=== PATIENT | female | born 1965 | race Caucasian/White ===

== ENCOUNTER → 2017-02-25 | Outpatient (CLI) | payer OTHER ==
--- NOTE | 2017-02-25 14:04 | XR ---
EXAMINATION TYPE: XR cervical spine limited DATE OF EXAM: 02/25/2017 1:53 PM COMPARISON: NONE HISTORY: Pain TECHNIQUE: Four views are submitted. FINDINGS: The odontoid is intact. There are no compression deformities. The prevertebral soft tissue structur es are within normal limits. There is loss the normal cervical lordosis. Severe degenerative disc di sease C4-T1 with posterior spondylosis. Anterior hypertrophic changes are seen. IMPRESSION: 1. Multilevel severe degenerative disc disease. Reversal of the normal cervical lordosis. Correlate w ith MRI as clinically warranted. Likely is a degree of Canal stenosis at C5-C6 secondary to posterior spondylosis. Foraminal encroachment suspected.
== END ==
LOC: RADXRMAIN 13:18
PROVIDERS: ATTEND Family Medicine
DX: M50.30 Other cervical disc degeneration, unspecified cervical region (principal)
CPT/HCPCS: 72040

== ENCOUNTER → 2017-04-30 | Outpatient (CLI) | payer OTHER ==
--- NOTE | 2017-05-01 08:20 | MM ---
Reason for exam: screening (asymptomatic). Last mammogram was performed 13 years and 8 months ago. History: Patient is postmenopausal. Family history of breast cancer in paternal grandmother at age 75. Took hormonal contraceptives for 9 years beginning at age 20. Physical Findings: A clinical breast exam by your physician is recommended on an annual basis and results should be correlated with mammographic findings. MG Screening Mammo w CAD Bilateral CC and MLO view(s) were taken. Prior study comparison: December 05, 2015, right breast mammogram, performed at [facility]. May 23, 2015, mammogram, performed at [facility]. February 09, 2014, mammogram, performed at [facility]. The breast tissue is heterogeneously dense. This may lower the sensitivity of mammography. There is chronic nodularity in the left breast. No significant changes when compared with prior studies. ASSESSMENT: Benign, BI-RAD 2 RECOMMENDATION: Routine screening mammogram of both breasts in 1 year.
== END | disposition home or self-care (01) ==
LOC: RADMAMWWP 10:15
PROVIDERS: ATTEND Family Medicine
DX: Z12.31 Encounter for screening mammogram for malignant neoplasm of breast (principal)

== ENCOUNTER 2018-06-03 09:16 | Day surgery (SDC) | payer OTHER ==
[2018-06-01 17:25] VITALS: BMI 36.0
[~2018-06-03 09:16] MED LIST: LACTATED RINGERS 1,000 ML IV SCH
[2018-06-03 09:56] VITALS: TEMP 97.3
[2018-06-03] MEDS ORDERED: LIDOCAINE 1% 20 ML VIAL (10MG/ML) FOR IV START INTRADERMA ONE (09:59)
[2018-06-03 10:04] LABS: Glucose,Whole Blood 87 mg/dL (75-99)
[2018-06-03] MEDS ORDERED: MIDAZOLAM 2 MG/2 ML VIAL IVP ONE (10:16)
[2018-06-03] MEDS ORDERED: LIDOCAINE 1% INJ 10MG/ML (20 ML MDV) ONE (10:30)
[2018-06-03] MEDS ORDERED: PROPOFOL 10 MG/ML 20 ML VIAL IV ONE (10:30)
--- NOTE | 2018-06-03 10:54 | P.PCN ---
Date of Procedure: 06/03/18 Procedure(s) Performed: Procedure: Colonoscopy and polypectomy. Preoperative diagnosis: Screening for neoplasia. Postoperative diagnosis: Small cecal polyp snared but no large polyps or cancer. Preparation: HalfLytely prep. Sedation: Was provided by anesthesia. Brief clinical history: The patient is a 53-year-old female who is scheduled for this evaluation for screening for neoplasia. The patient has been troubled with constipation all her life having a bowel movement less often than once a week. She also had issues with hemorrhoids with intermittent rectal bleeding. She had those operated on years back. No family history of colon cancer. She has no other abdominal symptoms or anemia. This would be her first colonoscopy. Procedure: With the patient on her left lateral decubitus position and after informed consent and adequate sedation, the perianal area was inspected and it did not show any fissures or fistulas. There was skin redundancy and skin tags. There were no masses felt on digital rectal examination. The Olympus CFQ 160L video colonoscope was then inserted in the rectum in the usual fashion and advanced to the cecum. There was a small polyp in the cecum which was snared and retrieved by suction but there were no large polyps or cancer. The mucosa appeared healthy. No obvious diverticular disease or other pathology. I retroflexed the endoscope in the rectum before the endoscope was withdrawn. The patient tolerated the procedure well. Plan: The patient was reassured. Discussed dietary measures. She will follow- up with you as planned and I recommended repeat exam in 5 years.
[2018-06-03] MEDS ORDERED: ONDANSETRON 4 MG/2 ML VIAL IVP ONE (11:15)
[2018-06-03 11:35] VITALS: RESP 18
[2018-06-03 11:57] VITALS: BP 112/72; PULSE 60
== END 2018-06-03 12:26 | disposition home or self-care (01) ==
LOC: ORWHC2ENDO 09:16
DX: D12.0 Benign neoplasm of cecum (principal); K62.5 Hemorrhage of anus and rectum; L98.7 Excessive and redundant skin and subcutaneous tissue; L91.8 Other hypertrophic disorders of the skin; K59.00 Constipation, unspecified; Z88.5 Allergy status to narcotic agent; Z88.1 Allergy status to other antibiotic agents
CPT/HCPCS: 88305; 45385; J2250; J2405; J2001; J2704

== ENCOUNTER → 2018-11-30 | Outpatient (CLI) | payer OTHER ==
--- NOTE | 2018-11-30 14:32 | XR ---
EXAMINATION TYPE: XR chest 2V DATE OF EXAM: 11/30/2018 COMPARISON: NONE HISTORY: Persistent cough and severe shortness of breath. TECHNIQUE: Frontal and lateral views of the chest are obtained. FINDINGS: There is no focal air space opacity, pleural effusion, or pneumothorax seen. The cardiac silhouette size is within normal limits. Retrocardiac opacity consistent with moderate size hiatal he rnia is noted. The osseous structures are intact. IMPRESSION: No acute cardiopulmonary process.
[2018-12-01 11:43] LABS: Bordedella pertussis Not detected (Not detected); Bordetella holmesII Not detected (Not detected); Bordetella parapertussis Not detected (Not detected)
== END | disposition home or self-care (01) ==
LOC: RADXRMAIN 14:07
PROVIDERS: ATTEND Family Medicine
DX: R05 Cough (principal)
CPT/HCPCS: 71046; 87798

== ENCOUNTER 2019-02-09 12:57 | Observation (INO) | payer OTHER ==
[2019-02-09] MEDS ORDERED: MORPHINE SULFATE 2 MG/ML SYRINGE IM STA ×2 (13:59→15:29)
[2019-02-09] MEDS ORDERED: DIAZEPAM 5 MG TAB PO STA (13:59)
[2019-02-09] MEDS ORDERED: ONDANSETRON ODT 4 MG TAB PO STA ×2 (14:10→15:45)
--- NOTE | 2019-02-09 15:15 | XR ---
EXAMINATION TYPE: XR lumbar spine 2 or 3V DATE OF EXAM: 02/09/2019 COMPARISON: NONE HISTORY: 53-year-old female with low back pain TECHNIQUE: 3 views FINDINGS: Levoconvex curvature of the lumbar spine. 5 lumbar type vertebral bodies. Moderate disc space narrowi ng at L3-L4 and mild at additional levels with associated endplate spondylosis. Facet arthropathy low er lumbar spine. Vertebral body heights are preserved and alignment is maintained. IMPRESSION: 1. Levoconvex scoliosis. Mild multilevel degenerative disc disease with more moderate disc height los s at L3-L4. 2. Facet arthropathy lower lumbar spine. No vertebral compression collapse or malalignment.
--- NOTE | 2019-02-09 16:14 | ED ---
Back Pain HPI - General Chief Complaint: Back Pain/Injury Stated Complaint: Back Pain Time Seen by Provider: 02/09/19 13:42 Source: patient Limitations: no limitations - History of Present Illness Initial Comments: 53-year-old female presenting for right lower back pain. 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 She states that stretches across toward the left side. Patient states that any movement she has a muscle spasm. Patient states with walking or hurts. Patient denies any muscle weakness or loss sensation of lower extremity she denies any urinary retention she denies loss of bowel bladder control. Patient states she does struggle with constipation chronically and has not taken her medication because she is scared to hurt her back when running to the toilet. Pt denies falling, IVDU, hx of cancer, fever, chills night sweats, chest pain, dyspnea, or having back pain prior to today. Patient denies hematuria dysuria or urgency frequency or any other urinary symptoms. Upon arrival patient appears uncomfortable. Remaining ROS (-). - Related Data Home Medications Medication Instructions Recorded Confirmed No Known Home Medications 06/01/18 02/09/19 Allergies Allergy/AdvReac Type Severity Reaction Status Date / Time erythromycin base Allergy trouble Verified 02/09/19 13:18 swelling,itching hydromorphone [From Dilaudid] Allergy N/V,headache,passed Verified 02/09/19 13:18 out Review of Systems ROS Statement: Those systems with pertinent positive or pertinent negative responses have been documented in the HPI. ROS Other: All systems not noted in ROS Statement are negative. Past Medical History Additional Past Medical History / Comment(s): constipation, hemorrhoids,rectal bleeding History of Any Multi-Drug Resistant Organisms: None Reported Past Surgical History: Hysterectomy, Orthopedic Surgery Additional Past Surgical History / Comment(s): right foot surg, hemorrhoidectomy Past Anesthesia/Blood Transfusion Reactions: Previous Problems w/ Anesthesia, Mo tion Sickness, Postoperative Nausea & Vomiting (PONV) Additional Past Anesthesia/Blood Transfusion Reaction / Comment(s): anxious w/surgery, slow to wake up Past Psychological History: No Psychological Hx Reported Smoking Status: Former smoker - Past Family History Mother Family Medical History: No Reported History General Exam - General Exam Comments Initial Comments: General: The patient is awake and alert, in no distress Eye: Pupils are equal, round and reactive to light, extra-ocular movements are intact. No nystagmus. There is normal conjunctiva bilaterally. No signs of icterus. Ears, nose, mouth and throat: There are moist mucous membranes and no oral lesions. Neck: The neck is supple, there is no tenderness or JVD. Cardiovascular: There is a regular rate and rhythm. No murmur, rub or gallop is appreciated. Respiratory: Lungs are clear to auscultation, respirations are non-labored, breath sounds are equal. No wheezes, stridor, rales, or rhonchi. Gastrointestinal: Soft, non-distended, non-tender abdomen without masses or organomegaly noted. There is no rebound or guarding present. No CVA tenderness. Bowel sounds are unremarkable. Musculoskeletal: There is right sided paravertebral tenderness to palpation. No midline tenderness to palpation. Normal ROM of the LE however this induces pain. Strength 5/5 of the LE equal b/l. Sensation intact of the LE equal b/l. DP pulses equal bilaterally 2+. Neurological: A&O x 3. CN II-XII intact, There are no obvious motor or sensory deficits. Coordination appears grossly intact. Speech is normal. Skin: Skin is warm and dry and no rashes or lesions are noted. Psychiatric: Cooperative, appropriate mood & affect, normal judgment. Limitations: no limitations Course Vital Signs 02/09/19 02/09/19 13:06 17:18 Temperature 97.8 F Pulse Rate 97 68 Respiratory 16 18 Rate Blood Pressure 125/89 129/87 O2 Sat by Pulse 96 97 Oximetry Medical Decision Making - Medical Decision Making 53-year-old female presented for low back pain. Patient bent over An object when she noticed sudden onset of pain. Patient states with movement she has a spasm in the right lower back. Patient has no midline tenderness on exam parave rtebral tenderness noted. No signs of cauda equina. Patient is neurovascularly intact. CT negative for osseous injury, there is evidence of bulging disks. No fractures or compression fractures. Patient provided muscle relaxant Valium as well as multiple doses of medication. Patient states her pain is uncontrolled and would like admission stating she does not feel safe at home. At this time gi fanny pt pain uncontrolled, difficulty ambulating secondary to muscle spasm that pt will be admitted for symptoms control. Pt has history of constipation there is stoool on lumbar xr. Will treat inpatient. Case was discussed with attending fire Dr. Roche who spoke with admitting for Dr. Fontenot. No further orders at this time. Disposition Clinical Impression: Low back strain, Intractable pain, Muscle spasm, Constipation Disposition: ADMITTED IP TO THIS [facility] Condition: Stable Is patient prescribed a controlled substance at d/c from ED?: No Time of Disposition: 17:04 Decision to Admit Reason: Admit from EC Decision Date: 02/09/19 Decision Time: 17:04
--- NOTE | 2019-02-09 16:54 | CT ---
EXAMINATION TYPE: CT lumbar spine wo con DATE OF EXAM: 02/09/2019 4:32 PM COMPARISON: None HISTORY: Low back pain x2 days. CT DLP: 963.9 mGycm Automated exposure control for dose reduction was used. Unenhanced CT of the lumbar spine was performed. Bone and soft tissue window settings are submitted as well as coronal and sagittal reconstructions. Multiple axial sections were obtained from the level of T12-S3 vertebra with no contrast. There is mi ld lumbar levoscoliosis. There is mild disc space narrowing at L2-3 L3-4. There is minor spurring of the endplates. There are posterior central disc bulges at L3-4 L4-5 and L5-S1. There is developmental ly large spinal canal and no spinal stenosis. There is no compression fracture. There is no lumbar pa raspinal mass. I see no focal bone destruction. The visualized sacroiliac joints appear intact. Poste rior elements are intact. There is no significant facet arthropathy. IMPRESSION: Minor degenerative disc changes and disc bulging. No fracture. Mild levoscoliosis.
[2019-02-09] MEDS ORDERED: NALOXONE 0.4 MG/ML 1 ML VIAL IV PRN (17:04)
[2019-02-09] MEDS ORDERED: ACETAMINOPHEN TAB 325 MG TAB PO PRN (17:04)
[2019-02-09] MEDS ORDERED: MAGNESIUM HYDROXIDE 2,400 MG/10 ML CUP PO PRN (17:04)
[2019-02-09] MEDS ORDERED: ONDANSETRON 4 MG/2 ML VIAL IVP PRN (17:04)
[2019-02-09] MEDS ORDERED: MORPHINE SULFATE 4 MG/ML SYRINGE IV PRN (17:04)
[2019-02-09] MEDS: KETOROLAC 30 MG/ML 1 ML VIAL IVP PRN (18:42)
[2019-02-09 19:19] VITALS: BMI 34.7
[2019-02-09] MEDS: SODIUM CHLORIDE 0.9% 1,000 ML IV SCH (19:43)
[2019-02-10] MEDS ORDERED: BISACODYL 10 MG SUPP RECTAL STA (12:29)
[2019-02-10] MEDS ORDERED: CYCLOBENZAPRINE 10 MG TAB PO PRN (12:52)
[2019-02-10] MEDS: KETOROLAC 30 MG/ML 1 ML VIAL IVP PRN (13:03)
[2019-02-10] MEDS: SODIUM CHLORIDE 0.9% 1,000 ML IV SCH (14:45)
[2019-02-10] MEDS: LIDOCAINE 5% PATCH TOPICAL SCH (14:46)
[2019-02-10] MEDS ORDERED: BISACODYL 5 MG TABLET.DR PO PRN (16:44)
--- NOTE | 2019-02-10 16:44 | P.HPIM ---
History of Present Illness Chief Complaint: Back pain 53-year-old female comes in with above-mentioned complaint. 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 She said that she was not getting relief. Walking was hurting her she thus was brought in by her boyfriend to the ER for further urology management. The patient the time examination was denying any muscle weakness she was able to lift her legs but was having pain in her back when she was lifting her legs. She denies any loss of bowel or bladder control denies any numbness to her legs. Patient does not complain of any chest pain, no racing heart, no cough no shortness of breath, no bowel pain, nausea and vomiting, or diarrhea constipation, no tingling numbness of any extremities, no itch no rash ER course-patient's vitals were stable. CT of the lumbar spine shows minor degenerative changes and is bulging at the L2 3 and 4. No evidence of any compression fractures no spinal stenosis appreciated. Patient was given pain medications and admitted to the hospitalist service a further admission and management Review of Systems All systems: negative Past Medical History Additional Past Medical History / Comment(s): constipation, hemorrhoids,rectal bleeding History of Any Multi-Drug Resistant Organisms: None Reported Past Surgical History: Hysterectomy, Orthopedic Surgery Additional Past Surgical History / Comment(s): right foot surg, hemorrhoidectomy Past Anesthesia/Blood Transfusion Reactions: Previous Problems w/ Anesthesia, Motion Sickness, Postoperative Nausea & Vomiting (PONV) Additional Past Anesthesia/Blood Transfusion Reaction / Comment(s): anxious w/surgery, slow to wake up Past Psychological History: No Psychological Hx Reported Smoking Status: Former smoker - Past Family History Mother Family Medical History: No Reported History Medications and Allergies Home Medications Medication Instructions Recorded Confirmed Type No Known Home Medications 06/01/18 02/09/19 History Allergies Allergy/AdvReac Type Severity Reaction Status Date / Time erythromycin base Allergy trouble Verified 02/09/19 13:18 swelling,itching hydromorphone [From Dilaudid] Allergy N/V,headache,passed Verified 02/09/19 13:18 out Physical Exam Vitals: Vital Signs Temp Pulse Pulse Resp BP BP Pulse Ox 02/10/19 11:34 97.5 F L 67 18 108/68 94 L 02/10/19 05:42 97.7 F 101 H 16 109/75 93 L 02/09/19 20:44 97.1 F L 68 16 122/76 95 02/09/19 17:18 68 18 129/87 97 Intake and Output 02/10/19 02/10/19 02/10/19 06:59 14:59 22:59 Intake Total 590 Balance 590 Intake: Oral 590 Other: Voiding Method Toilet # Voids 2 4 On exam, alert and oriented x3. HEENT: Conjunctivae normal. eyes normal. NECK: No JVD. No thyroid enlargement. No LNs CARDIOVASCULAR: S1, S2 muffled. No murmur RESPIRATION: Breath sounds diminished in the bases. No rhonchi or crackles. No bronchial breathing. ABDOMEN: Soft, nontender . No guarding. no masses palpable. No ascites, No hepatosplenomegaly.Bowel sounds heard. LEGS: No edema. no swelling NERVOUS SYSTEM: Cranial N 2-12 grossly normal. Moves all 4 limbs. No focal deficits. No sensory deficit. No signs of cerebellar dysfucntion. Muscular skeletal : Patient is having paraspinal tenderness in the lumbar area. No spinal tenderness appreciated. Patient is having pain while raising her bilateral lower extremities Skin: no ulcer no rash Joints: No active swelling. No inflammation. Lymphatic system. No LN neck axilla or groin. Thrombosis Risk Factor Assmnt - Choose All That Apply Any of the Below Risk Factors Present?: Yes Each Factor Represents 1 point: Age 41-60 years, Obesity (BMI >25) Other Risk Factors: No Other congenital or acquired thrombophilia - If yes, enter type in comment: No Thrombosis Risk Factor Assessment Total Risk Factor Score: 2 Thrombosis Risk Factor Assessment Level: Low Risk Assessment and Plan Assessment: - Back pain - Paraspinal tenderness, no spinal tenderness - History of hemorrhoids - History of constipation Plan - We'll admit the patient MedSurg with telemetry under observation - We will control her pain with Toradol and morphine - We'll order for Flexeril and Ultram patch - PTOT has been consulted - Patient will be given Dulcolax for constipation - DVT and GI prophylaxis - We'll order for lab work in the morning - P patient is full code Time with Patient: Greater than 30
[2019-02-11] MEDS: LIDOCAINE 5% PATCH TOPICAL SCH (08:39)
[2019-02-11 08:40] LABS: HCT 40.9 % (34.0-46.0); HGB 12.9 gm/dL (11.4-16.0); MCH 27.6 pg (25.0-35.0); MCHC 31.5 g/dL (31.0-37.0); MCV 87.5 fL (80.0-100.0); Mean Platelet Volume 7.9; Platelet Count 263 k/uL (150-450); RBC 4.67 m/uL (3.80-5.40); WBC 8.2 k/uL (3.8-10.6)
[2019-02-11] MEDS: SODIUM CHLORIDE 0.9% 1,000 ML IV SCH (08:40)
[2019-02-11 08:56] LABS: Anion Gap 8 mmol/L; Blood Urea Nitrogen 17 mg/dL (7-17); Calcium 8.8 mg/dL (8.4-10.2); Carbon Dioxide 22 mmol/L (22-30); Chloride 109 mmol/L (98-107); Glucose 77 mg/dL (74-99); Potassium 4.7 mmol/L (3.5-5.1); Sodium 139 mmol/L (137-145)
[2019-02-11] MEDS: KETOROLAC 30 MG/ML 1 ML VIAL IVP PRN (14:14)
--- NOTE | 2019-02-11 14:38 | P.DS ---
Providers Date of admission: 02/09/19 17:17 Expected date of discharge: 02/11/19 Attending physician: Maria A Fontenot Primary care physician: Beth Villatoro [facility] Course: Discharge diagnosis Back pain - Paraspinal tenderness, no spinal tenderness - History of hemorrhoids - History of constipation Hospital course 53-year-old female comes in with above-mentioned complaint. 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 She said that she was not getting relief. Walking was hurting her she thus was brought in by her boyfriend to the ER for further urology management. The patient the time examination was denying any muscle weakness she was able to lift her legs but was having pain in her back when she was lifting her legs. She denies any loss of bowel or bladder control denies any numbness to her legs. Patient does not complain of any chest pain, no racing heart, no cough no shortness of breath, no bowel pain, nausea and vomiting, or diarrhea constipation, no tingling numbness of any extremities, no itch no rash On exam, alert and oriented x3. She said that she was doing much better than yesterday but she still having some spasms and pain. She is able to move up and walk though. Physical exam HEENT: Conjunctivae normal. eyes normal. NECK: No JVD. No thyroid enlargement. No LNs CARDIOVASCULAR: S1, S2 muffled. No murmur RESPIRATION: Breath sounds diminished in the bases. No rhonchi or crackles. No bronchial breathing. ABDOMEN: Soft, nontender . No guarding. no masses palpable. No ascites, No hepatosplenomegaly.Bowel sounds heard. LEGS: No edema. no swelling NERVOUS SYSTEM: Cranial N 2-12 grossly normal. Moves all 4 limbs. No focal deficits. No sensory deficit. No signs of cerebellar dysfucntion. Muscular skeletal : Patient is having paraspinal tenderness in the lumbar area. No spinal tenderness appreciated. Patient is having pain while raising her bilateral lower extremities Skin: no ulcer no rash Joints: No active swelling. No inflammation. Lymphatic system. No LN neck axilla or groin. The patient w will have an x-ray of the abdomen to make sure she is not having obstruction. She will be discharged if the x-ray does not show any obstruction. Physical therapy has been requested to give recommendations regarding home physical therapy. Before discharge the patient will be given referral for home PT. The patient will have an appointment made next week to follow without PCP to get physical therapy. She will also be given a work note Patient Condition at Discharge: Stable Plan - Discharge Summary Discharge Rx Participant: Yes New Discharge Prescriptions: New Bisacodyl [Dulcolax] 10 mg PO DAILY PRN #30 tablet. PRN Reason: Constipation Cyclobenzaprine [Flexeril] 10 mg PO TID PRN #30 tab PRN Reason: Muscle Spasm Lidocaine 5% Patch [Lidoderm 5% Patch] 1 patch TOPICAL DAILY #10 patch Naproxen 500 mg PO BID PRN #45 tablet PRN Reason: Pain HYDROcodone/APAP 5-325MG [[place] 5-325] 1 tab PO Q6HR PRN 3 Days #12 tab PRN Reason: Pain Omeprazole 20 mg PO DAILY #30 cap Acetaminophen Tab [Tylenol] 650 mg PO Q6HR PRN #30 tab PRN Reason: Mild Pain Or Fever > 100.5 Discharge Medication List Acetaminophen Tab [Tylenol] 650 mg PO Q6HR PRN #30 tab 02/11/19 [Rx] Bisacodyl [Dulcolax] 10 mg PO DAILY PRN #30 tablet. 02/11/19 [Rx] Cyclobenzaprine [Flexeril] 10 mg PO TID PRN #30 tab 02/11/19 [Rx] HYDROcodone/APAP 5-325MG [[place] 5-325] 1 tab PO Q6HR PRN 3 Days #12 tab 02/11/19 [Rx] Lidocaine 5% Patch [Lidoderm 5% Patch] 1 patch TOPICAL DAILY #10 patch 02/11/19 [Rx] Naproxen 500 mg PO BID PRN #45 tablet 02/11/19 [Rx] Omeprazole 20 mg PO DAILY #30 cap 02/11/19 [Rx] Follow up Appointment(s)/Referral(s): Beth Villatoro MD [Primary Care Provider] - 02/15/19 1:00 pm [facility], [NON-STAFF] - 1 Week Discharge Disposition: HOME WITH HOME HEALTH SERVICES
--- NOTE | 2019-02-11 17:10 | XR ---
EXAMINATION TYPE: XR abdomen 1V DATE OF EXAM: 02/11/2019 COMPARISON: NONE HISTORY: Abdominal pain TECHNIQUE: 2 views FINDINGS: Supine views were obtained and show no sign of intestinal obstruction or pneumoperitoneum. Fecal pattern is normal. There are no pathologic calcifications over the kidneys. There is slight lum bar levoscoliosis. Sacroiliac joints are intact. IMPRESSION: Nonacute abdomen. Slight lumbar levoscoliosis. No significant constipation.
[2019-02-11 21:25] VITALS: BP 112/75; PULSE 89; RESP 18; TEMP 97.5
== END 2019-02-11 21:56 | disposition home health service (06) ==
LOC: EC 12:57 → 3NMEDONC 17:17
PROVIDERS: ADMIT Hospitalist; ATTEND Hospitalist
DX: S39.012A Strain of muscle, fascia and tendon of lower back, initial encounter (principal); K59.09 Other constipation; K64.9 Unspecified hemorrhoids; M62.838 Other muscle spasm; E66.9 Obesity, unspecified; Z68.39 Body mass index [BMI] 39.0-39.9, adult; X50.9XXA Other and unspecified overexertion or strenuous movements or postures, initial encounter; Z88.5 Allergy status to narcotic agent; Z88.1 Allergy status to other antibiotic agents; Z87.891 Personal history of nicotine dependence
CPT/HCPCS: 96376 ×2; 96375; 96372; 96374; 99285; 97162; 97535; 97166; 80048; 85027; 72100; 74018; 72131; G0378 ×3; J2270 ×2; J2405; J1885 ×3

== ENCOUNTER → 2019-08-08 | Outpatient (CLI) | payer OTHER ==
--- NOTE | 2019-08-10 14:19 | MM ---
Reason for exam: screening (asymptomatic). Last mammogram was performed 2 years and 3 months ago. History: Patient is postmenopausal. Family history of breast cancer in paternal grandmother at age 75. Took hormonal contraceptives for 9 years beginning at age 20. Physical Findings: A clinical breast exam by your physician is recommended on an annual basis and results should be correlated with mammographic findings. MG Screening Mammo w CAD Bilateral CC and MLO view(s) were taken. Prior study comparison: April 30, 2017, bilateral MG screening mammo w CAD. December 05, 2015, right breast mammogram, performed at [facility]. The breast tissue is heterogeneously dense. This may lower the sensitivity of mammography. Benign appearing bilateral calcifications. No suspicious abnormality. No significant changes when compared with prior studies. ASSESSMENT: Benign, BI-RAD 2 RECOMMENDATION: Routine screening mammogram of both breasts in 1 year.
== END | disposition home or self-care (01) ==
LOC: RADMAMWWP 16:30
PROVIDERS: ATTEND Family Medicine
DX: Z12.31 Encounter for screening mammogram for malignant neoplasm of breast (principal)
CPT/HCPCS: 77067

== ENCOUNTER → 2020-08-29 | Outpatient (CLI) | payer OTHER ==
--- NOTE | 2020-08-29 14:03 | MM ---
Reason for exam: screening (asymptomatic). Last mammogram was performed 1 year and 1 month ago. History: Patient is postmenopausal. Family history of breast cancer in paternal grandmother at age 75. Took hormonal contraceptives for 9 years beginning at age 20. Physical Findings: A clinical breast exam by your physician is recommended on an annual basis and results should be correlated with mammographic findings. MG Screening Mammo w CAD Bilateral CC and MLO view(s) were taken. Prior study comparison: August 08, 2019, bilateral MG screening mammo w CAD. April 30, 2017, bilateral MG screening mammo w CAD. The breast tissue is heterogeneously dense. This may lower the sensitivity of mammography. There are benign appearing round calcifications bilaterally. There is no discrete abnormality. ASSESSMENT: Benign, BI-RAD 2 RECOMMENDATION: Routine screening mammogram of both breasts in 1 year.
== END | disposition home or self-care (01) ==
LOC: RADMAMWWP 10:03
PROVIDERS: ATTEND Family Medicine
DX: Z12.31 Encounter for screening mammogram for malignant neoplasm of breast (principal)
CPT/HCPCS: 77067

== ENCOUNTER → 2020-09-04 | Outpatient (CLI) | payer OTHER ==
[2020-09-04 14:56] LABS: Basophils % (A) 1 %; Eosinophils # (A) 0.1 k/uL (0-0.7); Eosinophils % (A) 1 %; HCT 45.3 % (34.0-46.0); HGB 14.3 gm/dL (11.4-16.0); Lymphocytes # (A) 1.4 k/uL (1.0-4.8); Lymphocytes % (A) 24 %; MCH 26.8 pg (25.0-35.0); MCHC 31.6 g/dL (31.0-37.0); MCV 84.8 fL (80.0-100.0); Mean Platelet Volume 8.2; Monocytes # (A) 0.3 k/uL (0-1.0); Monocytes % (A) 5 %; Neutrophils # (A) 3.9 k/uL (1.3-7.7); Neutrophils % (A) 68 %; Platelet Count 249 k/uL (150-450); RBC 5.34 m/uL (3.80-5.40); WBC 5.7 k/uL (3.8-10.6)
[2020-09-04 19:39] LABS: Albumin 4.4 g/dL (3.80-4.90); Albumin/Globulin Ratio 2.1 (1.60-3.17); Anion Gap 9.6 mmol/L (4.00-12.00); BUN/Creat Ratio 16.67 Ratio (12.00-20.00); Calcium 9.6 mg/dL (8.7-10.3); Carbon Dioxide 25.4 mmol/L (21.6-31.8); Chol/HDL Ratio 3.38; Globulin 2.1 g/dL (1.6-3.3); LDL Cholesterol,Calculated 152.6 mg/dL (0.0-131.0); Non-African American GFR(CKD) 72.5 (60.0-200.0); Potassium 4.6 mmol/L (3.5-5.5); Total Bilirubin 0.6 mg/dL (0.3-1.2); Total Protein 6.5 g/dL (6.2-8.2); VLDL Calculation 33.4 mg/dL (5.00-40.00)
== END | disposition home or self-care (01) ==
LOC: LABWHC1 13:30
PROVIDERS: ATTEND Family Medicine
DX: Z20.828 Contact with and (suspected) exposure to other viral communicable diseases (principal)
CPT/HCPCS: 36415; 80053; 80061; 84443; 85025; 86803

== ENCOUNTER → 2021-10-16 | Outpatient (CLI) | payer OTHER ==
--- NOTE | 2021-10-17 14:59 | MM ---
Reason for exam: screening (asymptomatic). Last mammogram was performed 1 year and 2 months ago. History: Patient is postmenopausal. Family history of breast cancer in paternal grandmother at age 75. Took hormonal contraceptives for 9 years beginning at age 20. Physical Findings: A clinical breast exam by your physician is recommended on an annual basis and results should be correlated with mammographic findings. MG 3D Screening Mammo W/Cad Bilateral CC and MLO view(s) were taken. Prior study comparison: August 29, 2020, bilateral MG screening mammo w CAD. August 08, 2019, bilateral MG screening mammo w CAD. The breast tissue is heterogeneously dense. This may lower the sensitivity of mammography. There are benign appearing round calcifications bilaterally. Asymmetric breast tissue left posterior, stable. There is no discrete abnormality. ASSESSMENT: Benign, BI-RAD 2 RECOMMENDATION: Routine screening mammogram of both breasts in 1 year.
== END | disposition home or self-care (01) ==
LOC: RADMAMWWP 16:21
PROVIDERS: ATTEND Family Medicine
DX: Z12.31 Encounter for screening mammogram for malignant neoplasm of breast (principal); Z78.0 Asymptomatic menopausal state; Z80.3 Family history of malignant neoplasm of breast
CPT/HCPCS: 77063; 77067

== ENCOUNTER 2023-01-13 16:41 | Emergency (ER) | payer OTHER ==
[2023-01-13 16:54] VITALS: BP 132/89; PULSE 90; RESP 20; TEMP 98
[2023-01-13] MEDS ORDERED: HYDROcodone/APAP 5-325MG 1 EACH TAB PO STA (17:18)
[2023-01-13] MEDS ORDERED: KETOROLAC 15 MG/ML 1 ML VIAL IM STA (17:19)
--- NOTE | 2023-01-13 18:00 | XR ---
EXAMINATION TYPE: XR cervical spine comp DATE OF EXAM: 01/13/2023 5:28 PM INDICATION: Patient age:Female; 57 years old; Reason for study: Pain; COMPARISON: Spine 02/25/2017 TECHNIQUE: The cervical spine was imaged in frontal, lateral, and odontoid. FINDINGS: The osseous structures show normal alignment without evidence of an acute fracture. There are osteoph ytes noted throughout the cervical spine on the anterior and lateral aspects of the vertebral bodies. The intervertebral disk spaces are narrowed at multiple levels Pedicles are intact. Soft tissues ar e within normal limits. The odontoid appears intact. IMPRESSION: 1. No fracture or dislocation. 2. Mild degenerative disc disease changes of the cervical spine.
--- NOTE | 2023-01-13 18:02 | XR ---
EXAMINATION TYPE: XR shoulder complete LT DATE OF EXAM: 01/13/2023 5:28 PM INDICATION: Patient age:Female; 57 years old; Reason for study: Pain; COMPARISON: None TECHNIQUE: The left shoulder was examined in AP, internally rotated and scapular Y projections. FINDINGS: No evidence of acute osseous pathology, joint dislocation, or soft tissue swelling. The remaining por tions of the visualized chest are unremarkable. IMPRESSION: No acute osseous pathology.
--- NOTE | 2023-01-13 18:18 | ED ---
Extremity Problem HPI - General Chief complaint: Extremity Problem,Nontraumatic Stated complaint: numbness in L arm Time Seen by Provider: 01/13/23 16:58 Source: patient, RN notes reviewed Mode of arrival: ambulatory Limitations: no limitations - History of Present Illness Initial comments: This is a 57-year-old female who presents to the emergency department for left arm pain and numbness. Reports pain and numbness in the left arm going on for over a year. Since she is taking Motrin and Tylenol with no relief in symptoms. She was originally told that it may be related to a pinched nerve in the neck, however she did not have any kind of workup done. She is at the point where she is unable to sleep due to the pain. States that it feels like a heaviness and describes the sensation as being similar to when her foot is asleep. She has not yet seen any specialists regarding this problem. Denies any fevers, chills, sore throat, cough, dyspnea, chest pain, palpitations, abdominal pain, nausea, vomiting, diarrhea, back pain, or headaches. MD Complaint: extremity pain - Related Data Previous Rx's Medication Instructions Recorded Acetaminophen Tab [Tylenol] 650 mg PO Q6HR PRN #30 tab 02/11/19 Cyclobenzaprine [Flexeril] 10 mg PO TID PRN #30 tab 02/11/19 HYDROcodone/APAP 5-325MG [Eldorado 1 tab PO Q6HR PRN 3 Days #12 tab 02/11/19 5-325] Lidocaine 5% Patch [Lidoderm 5% 1 patch TOPICAL DAILY #10 patch 02/11/19 Patch] Naproxen 500 mg PO BID PRN #45 tablet 02/11/19 Omeprazole 20 mg PO DAILY #30 cap 02/11/19 bisacodyL [Dulcolax] 10 mg PO DAILY PRN #30 tablet. 02/11/19 HYDROcodone/APAP 5-325MG [E[place]orado 1 tab PO Q6HR PRN 3 Days #12 tab 01/13/23 5-325] predniSONE 50 mg PO DAILY 5 Days #5 tab 01/13/23 Allergies Allergy/AdvReac Type Severity Reaction Status Date / Time erythromycin base Allergy trouble Verified 01/13/23 16:54 swelling,itching hydromorphone [From Dilaudid] Allergy N/V,headache,passed Verified 01/13/23 16:54 out Review of Systems ROS Statement: Those systems with pertinent positive or pertinent negative responses have been documented in the HPI. ROS Other: All systems not noted in ROS Statement are negative. Past Medical History Additional Past Medical History / Comment(s): constipation, hemorrhoids,rectal bleeding History of Any Multi-Drug Resistant Organisms: None Reported Past Surgical History: Hysterectomy, Orthopedic Surgery Additional Past Surgical History / Comment(s): right foot surg, hemorrhoidectomy Past Anesthesia/Blood Transfusion Reactions: Previous Problems w/ Anesthesia, Motion Sickness, Postoperative Nausea & Vomiting (PONV) Additional Past Anesthesia/Blood Transfusion Reaction / Comment(s): anxious w/surgery, slow to wake up Past Psychological History: No Psychological Hx Reported Smoking Status: Never smoker Past Alcohol Use History: Daily Past Drug Use History: None Reported - Past Family History Mother Family Medical History: No Reported History General Exam Limitations: no limitations General appearance: alert, in no apparent distress Head exam: Present: atraumatic, normocephalic, normal inspection Neck exam: Present: normal inspection, tenderness (Left lateral aspect of the cervical spine). Absent: meningismus, lymphadenopathy Respiratory exam: Present: normal lung sounds bilaterally. Absent: respiratory distress, wheezes, rales, rhonchi, stridor Cardiovascular Exam: Present: regular rate, normal rhythm, normal heart sounds. Absent: systolic murmur, diastolic murmur, rubs, gallop, clicks Extremities exam: Present: other (Tenderness to palpation over the trapezius and cervical spine. Pain induced with active and passive range of motion. 2+ radial pulses and capillary refill less than 1 second. No erythema, swelling, or deformities.) Neurological exam: Present: alert, oriented X3, CN II-XII intact Psychiatric exam: Present: normal affect, normal mood Skin exam: Present: warm, dry, intact, normal color. Absent: rash Course Vital Signs 01/13/23 16:51 Temperature 98.0 F Pulse Rate 90 Respiratory 20 Rate Blood Pressure 132/89 O2 Sat by Pulse 99 Oximetry Medical Decision Making - Medical Decision Making This is a 57-year-old female who presents to the emergency department for left arm pain. Was pt. sent in by a medical professional or institution? @ -No Did you speak to anyone other than the patient for history? @ -No Did you review nursing and triage notes? @ -Yes, and I agree, it is accurate with regards to the patient's symptoms. Were old charts reviewed? @ -No Differential Diagnosis? @ -Arm Pain/Numbness: Fracture, dislocation, NC, DVT, arterial occlusion, cervical radiculopathy, infection, this is not meant to be an all-inclusive list. X-rays interpreted by me (1pt min.)? @ -X-ray of the cervical spine and left shoulder obtained. My interpretation reveals degenerative changes in the cervical spine and no evidence of any acute fractures in the cervical spine or the left shoulder. U/S interpreted by me (1pt. min.)? @ -Duplex ultrasound of the left upper extremity obtained. My interpretation identifies no evidence of a DVT. What testing was considered but not performed? (CT, X-rays, U/S, labs)? Why? @ -None What meds were considered but not given? Why? @ -None Did you discuss the management of the patient with other professionals? @ -No Did you reconcile home meds? @ -No Was smoking cessation discussed for >3mins.? @ -No Was critical care preformed (if so, how long)? @ -No Were there social determinants of health that impacted care today? How? (Homelessness, low income, unemployed, alcoholism, drug addiction, transportation, low edu. Level, literacy, decrease access to med. care, intermediate, rehab)? @ -No Was there de-escalation of care discussed even if they declined? (Discuss DNR or withdrawal of care, Hospice)? @ -No What co-morbidities impacted this encounter? (DM, HTN, Smoking, COPD, CAD, Cancer, CVA, Hep., AIDS, mental health diagnosis, sleep apnea, morbid obesity)? @ -None Was patient admitted / discharged? @ -Discharged. The radiologist notes multiple osteophytes on the cervical spine x-ray, that with associated left-sided cervical spine tenderness makes her symptoms most likely to be a cervical radiculopathy. Duplex ultrasound of the left upper extremity obtained as well, revealing no evidence of a DVT or other acute findings. I did offer her Eldorado and Toradol in the emergency department, however the patient declined. Prescription for Eldorado and 5 day course of prednisone provided with dosing instructions reviewed. She is instructed to avoid taking over the counter antiinflammatories when taking the Prednisone and to only take it with Tylenol. Also advised she avoid driving or operating machinery when taking the Eldorado. Information for neurology follow-up provided, instructed her to contact them for a follow-up appointment regarding the ongoing symptoms. Undiagnosed new problem with uncertain prognosis? @ -None Drug Therapy requiring intensive monitoring for toxicity (Heparin, Nitro, Insulin, Cardizem)? @ -None Were any procedures done? @ -None Diagnosis/symptom? @ -Cervical radiculopathy, Cervical osteophyte Acute, or Chronic, or Acute on Chronic? @ -Chronic Uncomplicated (without systemic symptoms) or Complicated (systemic symptoms)? @ -Uncomplicated Side effects of treatment? @ -None Exacerbation, Progression, or Severe Exacerbation] @ -Progression Poses a threat to life or bodily function? @ -No Return precautions reviewed in depth, the patient is instructed to return to the emergency department with any new, worsening, or concerning symptoms. Patient verbalized understanding. This case was discussed in detail with the attending ED physician, Dr. Hanson. Presentation, findings, and treatment plan discussed in detail as well. - Radiology Data Radiology results: report reviewed, image reviewed Disposition Clinical Impression: Cervical radiculopathy, Cervical osteophyte Disposition: HOME SELF-CARE Instructions (If sedation given, give patient instructions): Cervical Radiculopathy (ED) Additional Instructions: Return to the emergency department with any new, worsening, or concerning symptoms. Take the prednisone daily for 5 days. Do not take any other vfal-[id number]-tqijybi anti-inflammatories such as ibuprofen when taking this. You may take this with Tylenol. Take the Eldorado sparingly when your pain is the most severe and be aware that it may be sedating and you should avoid driving or operating machinery when taking this. Follow up with neurology as listed below for reevaluation of symptoms and discussion of alternative treatment options. Follow up with your primary care provider in 1-2 days. Prescriptions: HYDROcodone/APAP 5-325MG [Eldorado 5-325] 1 tab PO Q6HR PRN 3 Days #12 tab PRN Reason: Pain predniSONE 50 mg PO DAILY 5 Days #5 tab Is patient prescribed a controlled substance at d/c from ED?: Yes When asked, does pt state using other controlled substances?: No If prescribed controlled substance>3 days was MAPS reviewed?: Prescribed <3 Days Referrals: Beth Villatoro MD [Primary Care Provider] - 1-2 days Ronnie More MD [Medical Doctor] - 1-2 days
--- NOTE | 2023-01-13 18:49 | US ---
EXAMINATION TYPE: US venous doppler duplex UE LT DATE OF EXAM: 01/13/2023 COMPARISON: NONE CLINICAL HISTORY: Left arm pain and numbness. left arm tingling x 1 day SIDE PERFORMED: Left Left Arm: Negative for DVT , Grayscale, color doppler, spectral doppler imaging performed of the deep veins of the upper extremities. There is normal flow, compressibility and vascular waveforms. IMPRESSION: No evidence for deep vein thrombus of the left upper extremity.
[2023-01-13] MEDS ORDERED: IBUPROFEN 600 MG STARTER PACK 4 TAB BTL PO STA (19:06)
[2023-01-13] MEDS ORDERED: ACET/COD 300 MG/30 MG STARTER PACK 6 TAB BTL PO STA (19:06)
== END 2023-01-13 19:26 | disposition home or self-care (01) ==
LOC: EC 16:41
DX: M54.12 Radiculopathy, cervical region (principal); Z88.8 Allergy status to other drugs, medicaments and biological substances
CPT/HCPCS: 72050; 99283

== ENCOUNTER → 2023-01-15 | Outpatient (CLI) | payer OTHER ==
--- NOTE | 2023-01-16 08:05 | MM ---
Reason for Exam: Screening (asymptomatic). Last mammogram was performed 1 year(s) and 3 month(s) ago. Patient History: Menarche at age 14. First Full-Term at age 30. Hysterectomy at age 43. Postmenopausal. Patient has history of breast feeding. Hormonal Contraceptives for 9 years from age 20 until age 28. Paternal grandmother had breast cancer, age 75. Risk Values: Sushma 5 year model risk: 1.4%. NCI Lifetime model risk: 8.9%. Prior Study Comparison: 08/08/2019 Bilateral Screening Mammogram, [facility]. 08/29/2020 Bilateral Screening Mammogram, [facility]. 10/16/2021 Bilateral Screening Mammogram, [facility]. Tissue Density: The breast tissue is heterogeneously dense. This may lower the sensitivity of mammography. Findings: Analyzed By CAD. There is no suspicious group of microcalcifications or new suspicious mass in either breast. Benign-appearing round calcifications within both breasts. Overall Assessment: Benign, BI-RAD 2 Management: Screening Mammogram of both breasts in 1 year. A clinical breast exam by your physician is recommended on an annual basis and results should be correlated with mammographic findings. Electronically signed and approved by: David Torres D.O.
== END | disposition home or self-care (01) ==
LOC: RADMAMWWP 16:32
PROVIDERS: ATTEND Family Medicine
DX: Z12.31 Encounter for screening mammogram for malignant neoplasm of breast (principal); Z78.0 Asymptomatic menopausal state; Z80.3 Family history of malignant neoplasm of breast
CPT/HCPCS: 77067

== ENCOUNTER → 2024-01-18 | Outpatient (CLI) | payer OTHER ==
--- NOTE | 2024-01-18 23:29 | MM ---
Reason for Exam: Screening (asymptomatic). Last screening mammogram was performed 12 month(s) ago. Patient History: Menarche at age 14. First Full-Term at age 30. Hysterectomy at age 43. Postmenopausal. Patient has history of breast feeding. Hormonal Contraceptives for 9 years from age 20 until age 28. Paternal grandmother had breast cancer, age 75. Risk Values: Sushma 5 year model risk: 1.4%. NCI Lifetime model risk: 8.7%. Prior Study Comparison: 08/29/2020 Bilateral Screening Mammogram, [facility]. 10/16/2021 Bilateral Screening Mammogram, [facility]. 01/15/2023 Bilateral MG screening mammo w CAD, [facility]. Tissue Density: The breasts are heterogeneously dense, which may obscure small masses. Findings: Analyzed By CAD. The pattern is symmetrical. No significant interval change No suspicious groups of microcalcifications, spiculated or lobular masses, architectural distortion or other secondary signs of malignancy are mammographically apparent. Overall Assessment: Benign, BI-RAD 2 Management: Screening Mammogram of both breasts in 1 year. A negative mammogram report should not preclude additional follow up of suspicious palpable abnormalities. Patient should continue monthly self breast exam. A clinical breast exam by your physician is recommended on an annual basis and results should be correlated with mammographic findings. Electronically signed and approved by: Chano Mclean D.O. Radiologis
== END | disposition home or self-care (01) ==
LOC: RADMAMWWP 16:38
PROVIDERS: ATTEND Family Medicine
DX: Z12.31 Encounter for screening mammogram for malignant neoplasm of breast (principal); Z80.3 Family history of malignant neoplasm of breast; Z78.0 Asymptomatic menopausal state
CPT/HCPCS: 77067

== ENCOUNTER → 2025-01-20 | Outpatient (CLI) | payer OTHER ==
--- NOTE | 2025-01-23 13:13 | MM ---
Reason for Exam: Screening (asymptomatic). Last screening mammogram was performed 12 month(s) ago. Patient History: Menarche at age 14. First Full-Term at age 30. Hysterectomy at age 43. Postmenopausal. Patient has history of breast feeding. Hormonal Contraceptives for 9 years from age 20 until age 28. Paternal grandmother had breast cancer, age 75. Risk Values: Sushma 5 year model risk: 1.5%. NCI Lifetime model risk: 8.5%. Prior Study Comparison: 10/16/2021 Bilateral Screening Mammogram, [facility]. 01/15/2023 Bilateral MG screening mammo w CAD, [facility]. 01/18/2024 Bilateral MG screening mammo w CAD, [facility]. Tissue Density: The breasts are heterogeneously dense, which may obscure small masses. Findings: Analyzed By CAD. There is no suspicious group of microcalcifications or new suspicious mass in either breast. Overall Assessment: Benign, BI-RAD 2 Management: Screening Mammogram of both breasts in 1 year. . Patient should continue monthly self-breast exams. A clinical breast exam by your physician is recommended on an annual basis. This exam should not preclude additional follow-up of suspicious palpable abnormalities. Note on Sushma scores and lifetime risk: 1. A Sushma score greater than 3% is considered moderate risk. If this is the case, consider specialist referral to assess eligibility for a risk reducing agent. 2. If overall lifetime risk for the development of breast cancer is 20% or higher, the patient may qualify for future screening with alternating mammogram and breast MRI. [facility], , 01/23/2025 12:51 PM. Electronically signed and approved by: Rad Burt M.D. Radiologis
== END | disposition home or self-care (01) ==
LOC: RADMAMWWP 15:37
PROVIDERS: ATTEND Family Medicine
DX: Z12.31 Encounter for screening mammogram for malignant neoplasm of breast (principal); R92.333 Mammographic heterogeneous density, bilateral breasts; Z78.0 Asymptomatic menopausal state; Z92.0 Personal history of contraception
CPT/HCPCS: 77067